=== PATIENT | male | born 1960 | race Caucasian/White ===

== ENCOUNTER 2016-06-09 19:25 | Emergency (ER) | payer BC ==
[~2016-06-09] VITALS: Ht 188 cm; Wt 132.8 kg
[~2016-06-09 19:25] MED LIST: ASPI81TA28 PO; CALC500C3 PO; MULT-506 PO; OMEG10007 PO
[2016-06-09 19:27] VITALS: TEMP 37; Ht 188 cm; Wt 132.8 kg
--- NOTE | 2016-06-09 19:55 | DIAGNOSTIC IMAGING REPORT ---
LEFT ANKLE MIN 3 VIEWS ROUTINE CLINICAL HISTORY: Left ankle pain status post trauma COMPARISON: None. DISCUSSION: There is moderate medial soft tissue swelling. No acute fractures are visualized. The ankle mortise appears intact on these nonstress views. There is a fragmented to recent surgical spur. IMPRESSION: Soft tissue swelling. No acute fractures identified. Electronically signed by: Juan Jose Kumar M.D. 06/09/2016 7:54 PM Dictated Date/Time: 06/09/2016 7:53 PM
[2016-06-09] MEDS ORDERED: ASCO100061 PO (20:32)
[2016-06-09] MEDS ORDERED: GLUCTAB7 PO (20:33)
[2016-06-09] MEDS ORDERED: GLUC1CAP35 PO (20:34)
[2016-06-09] MEDS ORDERED: PRLSR20 PO (20:35)
[2016-06-09] MEDS ORDERED: LSN/10125 PO (20:43)
--- NOTE | 2016-06-09 20:46 | EMERGENCY ROOM VISIT NOTE ---
History First contact with patient: 19:35 Chief Complaint: ANKLE PAIN Stated Complaint: SWOLLEN LEFT ANKLE History of Present Illness The patient is a 55 year old male who presents to the Emergency Room with complaints of swelling and bruising over the inner aspect of his left ankle. The patient reports that he is active in [employer]. He does not recall any trauma to the area. He denies any significant pain with ambulation. He was concerned because of the swelling and bruising in a class tonight. The patient reports that he has recently been following with Dr. Yeager at [facility] for numbness over the lateral aspect of his left foot. The patient currently rates his discomfort a 1 out of 10. He denies any pain extending into the knee or thigh. Review of Systems 10 system review was performed and was negative except for pertinent positives and negatives as indicated in history of present illness Past Medical/Surgical History Medical Problems: (1) Bilateral Inguinal Hernia, W/O Obst Or Gangrene, Recurrent (2) Peritoneal Adhesions (Postprocedural) (Postinfection) (3) Tear Med Menisc Knee-Cur (4) Umbilical Hernia Without Obstruction Or Gangrene Family History Unremarkable Social History Smoking Status: Never Smoker Alcohol Use: occasionally Marital Status: Housing Status: lives with family Occupation Status: employed Current/Historical Medications Scheduled Ascorbic Acid (Ascorbic Acid), 1,000 MG PO DAILY Aspirin (Aspirin Ec), 81 MG PO QAM Calcium Carbonate (Tums), 2 TAB PO PRN Fish Oil (Celina-3), 1,000 MG PO QAM Dvjwaeaxiec-Amwzcuddefi-Jya C- (Glucosamine Chondroitin), 4 CAP PO DAILY Multivitamin (Multivitamin), 1 TAB PO QAM Omeprazole (Prilosec), 20 MG PO DAILY Allergies Coded Allergies: No Known Allergies (Unverified , 06/09/16) Physical Exam Vital Signs Date Time Temp Pulse Resp B/P Pulse Ox O2 Delivery O2 Flow Rate FiO2 06/09/16 19:27 37.0 97 20 131/76 95 Room Air Physical Exam CONSTITUTIONAL: Healthy and well nourished. Alert and oriented X 3 with positive affect. HEENT: Normocephalic, atraumatic. Pupils equal, round and reactive. NECK: Full active range of motion without discomfort. MUSCULOSKELETAL: Examination shows edema and ecchymosis over the anterior medial aspect of the left ankle/distal leg. It is tender to palpation. There does not appear to be any tenderness to palpation of the ankle ligaments. Negative anterior draw. No focal tenderness to the Achilles tendon, calcaneus or dorsal midfoot. No tenderness to palpation through the tibia or fibula. Pedal pulses are intact. INTEGUMENTARY: No rash or other significant dermatologic conditions noted. NEUROLOGIC: No focal neurologic deficits noted. Medical Decision & Procedures ER Provider Diagnostic Interpretation: My interpretation of left ankle x-rays does not show any acute fractures. Radiologist report is as follows: LEFT ANKLE MIN 3 VIEWS ROUTINE CLINICAL HISTORY: Left ankle pain status post trauma COMPARISON: None. DISCUSSION: There is moderate medial soft tissue swelling. No acute fractures are visualized. The ankle mortise appears intact on these nonstress views. There is a fragmented to recent surgical spur. IMPRESSION: Soft tissue swelling. No acute fractures identified. ED Course Patient history and physical exam were performed. Nurse's notes were reviewed. X-rays of the left ankle were normal. The patient was encouraged to intermittently apply ice to areas of swelling and bruising. Ibuprofen or Tylenol as needed for pain. He was encouraged to follow-up with Dr. Yeager if symptoms persist or worsen. The patient was happy with plan of care, voiced understanding of all discharge instructions, and denied any pain at the time of discharge. Medical Decision Impression Primary Impression: Traumatic ecchymosis of left ankle Departure Information Dispostion Home / Self-Care Referrals Maylin Yeager MD Forms HOME CARE DOCUMENTATION FORM, IMPORTANT VISIT INFORMATION Patient Instructions My [facility] [employer] Additional Instructions Intermittently apply ice to ankle/areas of bruising. Ibuprofen or Tylenol as needed for any developing pain. Suggest follow-up with Dr. Yeager for any persistent bruising or worsening pain. Problem Qualifiers Primary Impression: Traumatic ecchymosis of left ankle Encounter type: initial encounter Qualified Codes: S90.02XA - Contusion of left ankle, initial encounter
[2016-06-09 20:56] VITALS: BP 152/85; PULSE 81; O2SAT 96
== END 2016-06-09 20:59 | disposition home or self-care (01) ==
LOC: C.EDB 19:28 → C.EDD 20:59
DX: S90.02XA Contusion of left ankle, initial encounter (principal); X58.XXXA Exposure to other specified factors, initial encounter

== ENCOUNTER 2021-07-25 10:25 | Inpatient (IN) ==
--- NOTE | 2021-07-08 13:42 | PAT Medication Instructions ---
Medication Instructions Date of Service July 08, 2021 Home Medications ascorbate calcium (vitamin C) 500 mg tablet 500 mg PO QAM hydrochlorothiazide 25 mg tablet 25 mg PO QAM losartan 50 mg tablet 100 mg PO QAM multivitamin 1 tab PO BID omeprazole 20 mg capsule,delayed release 20 mg PO QAM Relief Factor Otc 1 tab PO BID gabapentin 300 mg capsule 300 mg PO BID rosuvastatin 5 mg tablet 5 mg PO HS STOP taking 2 weeks before surgery (or as soon as possible) Relief Factor Otc 1 tab PO BID DO NOT take the morning of surgery ascorbate calcium (vitamin C) 500 mg tablet 500 mg PO QAM hydrochlorothiazide 25 mg tablet 25 mg PO QAM losartan 50 mg tablet 100 mg PO QAM multivitamin 1 tab PO BID Take morning of surgery With a small sip of water, OTHERWISE NOTHING TO EAT OR DRINK AFTER MIDNIGHT: omeprazole 20 mg capsule,delayed release 20 mg PO QAM gabapentin 300 mg capsule 300 mg PO BID Take evening before surgery multivitamin 1 tab PO BID gabapentin 300 mg capsule 300 mg PO BID rosuvastatin 5 mg tablet 5 mg PO HS Other Notes If you have any questions please call us at [phone] or [phone] or [phone] or [phone]
--- NOTE | 2021-07-10 13:12 | Anesthesiology Consultation ---
Date of Service July 10, 2021 Assessment & Plan (1) Encounter for pre-operative examination: COVID screening: Per assessment on 07/10: Travel screen- Patient travels to [place] (has second home there) for most weekends (no large gatherings or high risk activity). Patient vaccinated + booster. No known COVID-19 positive contacts or current COVID-19 related symptoms. Surgeon arranging preop COVID testing. Awaiting results. Chart Review Chart Review: Acceptable Risk for Surgery and Patient seen in Pre Admission Testing Teaching & Discussion Pre-Anesthesia Teaching/Discussion Notes: Instructed NPO after midnight before surgery,except medications with 15 cc of water. Medication instructions provided according to the PAT guidelines. \ History Surgery Operation Date: 07/25/21 12:00 Proposed Procedures p L4-L5 Decompression Fusion Spinal Cord Monitoring - Chilango Mcelroy DO Height/Weight Height: 6 ft 2 in Weight: 156.4 kg Allergies Allergy/AdvReac Type Severity Reaction Status Date / Time No Known Allergies Allergy Verified 07/08/21 07:59 Medications Home Medications Medication Instructions Recorded Confirmed Last Taken ascorbate calcium (vitamin C) 500 500 mg PO QAM 07/26/20 07/08/21 Unknown mg tablet hydrochlorothiazide 25 mg tablet 25 mg PO QAM 07/26/20 07/08/21 Unknown losartan 50 mg tablet 100 mg PO QAM 07/26/20 07/08/21 Unknown multivitamin 1 tab PO BID 07/26/20 07/08/21 Unknown omeprazole 20 mg capsule,delayed 20 mg PO QAM 07/26/20 07/08/21 Unknown release Relief Factor Otc 1 tab PO BID 07/08/21 07/08/21 Unknown gabapentin 300 mg capsule 300 mg PO BID 07/08/21 07/08/21 Unknown rosuvastatin 5 mg tablet 5 mg PO HS 07/08/21 07/08/21 Unknown Past Medical History Medical History Chronic back pain + B/L LE radiculopathy GERD (gastroesophageal reflux disease) Hyperlipidemia Hypertension Morbid obesity Sleep apnea CPAP (compliant until recall- just recently restarted) Temporomandibular joint disorder + clicking, no locking Exercise / Class Metabolic Activity III < 4 Walking/Shop/Light housework (one FS (no CP, + mild SOB)) Past Family History Family History Other No known health problems Past Surgical History Surgical History History of arthroscopy LEFT X 3 History of colonoscopy History of herniorrhaphy X 3 History of tonsillectomy Hx of shoulder surgery LEFT Past Anesthesia History No Hx of Anesthesia Complications and No Family Hx of Anesthesia Complications History of PONV No Hx of PONV and No Hx of Motion Sickness Social History Smoking Status: Never smoker Do You Dip or Chew Tobacco: No Hx Alcohol Use: Yes Alcohol type: beer alcohol intake frequency: a few times a week Hx Substance Use: No Review of Systems Patient denies chest pain, dyspnea on exertion, fever, chills, cough, wheezing, palpitations. Physical Exam Vital Signs VITALS BP 124/77 P 87 TEMP 98.4 SP02 94%RA RESP 18 PHYSICAL Full cervical extension range of motion. Full TMJ range of motion. TMD 3 finger breaths (difficult to palpate) Mallampati Score 3 Dentition: missing molar, + several caps Lungs: clear throughout to auscultation Cardiac: regular rate and rhythm, no murmurs noted Spine: normal Carotid arteries: negative bruit Extremities: no edema Short, thick neck Lab Results Anesthesia Preop Results Results Anesthesia Widget: WBC 6.81 K/uL (4.8-10.8) 07/10/21 Hgb 12.7 g/dL (14.0-18.0) L 07/10/21 Hct 38.3 % (42-52) L 07/10/21 Plt 246 K/uL (130-400) 07/10/21 Na 140 mmol/L (136-145) 07/10/21 K 3.5 mmol/L (3.5-5.1) 07/10/21 Cl 105 mmol/L (98-107) 07/10/21 CO2 30 mmol/L (21-32) 07/10/21 BUN 13 mg/dl (6-23) 07/10/21 Creat 1.07 mg/dl (0.6-1.4) 07/10/21 Glucose Level 130 mg/dl (70-99(Fasting)) H 07/10/21 PT 10.7 Seconds (9.0-12.0) 07/10/21 PTT 27.0 Seconds (21.0-31.0) 07/10/21 INR 1.0 (0.9-1.1) 07/10/21 Urine Color Dark Yellow 07/10/21 Urine Appearance Clear (Clear) 07/10/21 Urine pH 7.0 (4.5-7.5) 07/10/21 Urine Specific Stuart 1.015 (1.000-1.030) 07/10/21 Urine Protein Negative (Negative) 07/10/21 Urine Glucose (UA) Negative (Negative) 07/10/21 Urine Ketones Negative (Negative) 07/10/21 Urine Blood Negative (Negative) 07/10/21 Urine Nitrite Negative (Negative) 07/10/21 Urine Bilirubin Negative (Negative) 07/10/21 Urine Urobilinogen Negative (Negative) 07/10/21 Urine Leukocyte Esterase Trace (Negative) H 07/10/21 Urine WBC (Auto) 1-5 /hpf (0-5) 07/10/21 Urine RBC (Auto) 0-4 /hpf (0-4) 07/10/21 Urine Hyaline Casts (Auto) 1-5 /lpf (0-5) 07/10/21 Urine Epithelial Cells (Auto) 0-5 /lpf (0-5) 07/10/21 Urine Bacteria (Auto) Negative (Negative) 07/10/21 Blood Type O Negative 07/10/21 Antibody Screen NEGATIVE 07/10/21 Testing Electrocardiogram Date: 07/10/21 NSR at 72bpm. unconfirmed report. Chest X-Ray Date: 07/10/21 FINDINGS: The cardiac silhouette is enlarged. There is no pneumothorax, pleural effusion, airspace consolidation or overt pulmonary edema. Mild chronic int erstitial coarsening of the lung bases. Degenerative changes of the shoulders and spine. IMPRESSION: No acute process.
[~2021-07-25 10:25] MED LIST changes: +ACETAMINOPHEN 500 MG TAB PO SCH; -ASPI81TA28 PO; -CALC500C3 PO; +CeleBREX 200 MG CAP PO SCH; +GABAPENTIN 600 MG DOSE PO SCH; +LIDOCAINE 2% 2 ML VIAL/AMP(20MG/ML) INFIL ONE; +LR 15ML/HR IV SCH; +MIDAZOLAM HCL 1 MG/ML 2ML VIAL ONE; -MULT-506 PO; -OMEG10007 PO; +PROPOFOL IV EMULSION 10 MG/ML 20 ML VIAL IV ONE; +ROCURONIUM BROMIDE 10 MG/ML 5 ML VIAL IV ONE; +fentaNYL citrate 100 MCG/2 ML VIAL ONE
[2021-07-25] MEDS ORDERED: fentaNYL citrate 100 MCG/2 ML VIAL IV PRN (11:43)
[2021-07-25] MEDS ORDERED: ONDANSETRON INJ 2 MG/ML 2 ML VIAL IV PRN ×2 (11:43→16:32)
[2021-07-25] MEDS ORDERED: ATROPINE SULFATE 0.1 MG/ML 10ML SYR IV PRN (11:43)
[2021-07-25] MEDS ORDERED: ePHEDrine sulfate 50 MG/ML AMP IV PRN (11:43)
--- NOTE | 2021-07-25 11:51 | History & Physical Bridge Note ---
Date of Service July 25, 2021 History & Physical Bridge Note I have examined the patient, reviewed the History & Physical and in the interval since the performance of the History & Physical I have noted the following changes of clinical significance: no changes noted
--- NOTE | 2021-07-25 11:52 | History & Physical Report ---
Date of Service July 25, 2021 Assessment & Plan (1) Neurogenic claudication due to lumbar spinal stenosis: Plan: Lumbar decompression fusion L4-L5 History of Present Illness Chief Complaint: Back and leg pain Primary Care Provider: Inocencia Elliott Allergies Allergy/AdvReac Type Severity Reaction Status Date / Time No Known Allergies Allergy Verified 07/25/21 11:08 Home Medications Medication Instructions Recorded Confirmed Type ascorbate calcium (vitamin C) 500 500 mg PO QAM 07/26/20 07/25/21 History mg tablet hydrochlorothiazide 25 mg tablet 25 mg PO QAM 07/26/20 07/25/21 History losartan 50 mg tablet 100 mg PO QAM 07/26/20 07/25/21 History multivitamin 1 tab PO BID 07/26/20 07/25/21 History omeprazole 20 mg capsule,delayed 20 mg PO QAM 07/26/20 07/25/21 History release Relief Factor Otc 1 tab PO BID 07/08/21 07/25/21 History gabapentin 300 mg capsule 300 mg PO BID 07/08/21 07/25/21 History rosuvastatin 5 mg tablet 5 mg PO HS 07/08/21 07/25/21 History Past Med/Surg History Medical History Chronic back pain + B/L LE radiculopathy GERD (gastroesophageal reflux disease) Hyperlipidemia Hypertension Morbid obesity Sleep apnea CPAP (compliant until recall- just recently restarted) Temporomandibular joint disorder + clicking, no locking Surgical History History of arthroscopy LEFT X 3 History of colonoscopy History of herniorrhaphy X 3 History of tonsillectomy Hx of shoulder surgery LEFT Family History Other No known health problems Social History (Updated 07/08/21 @ 08:19 by Bonnie Rao RN) Smoking Status: Never smoker Second Hand Exposure: No; Do You Dip or Chew Tobacco: No; Hx Alcohol Use: Yes Alcohol type: beer Hx Substance Use: No Preferred Language: Lithuanian Communication Ability: Effective Classifier Tender Required: No Beliefs That Will Affect Care: None Current Living Situation: Spouse current occupational status: employed current occupation: [employer] Other Information That Helps Us Care for You: No Feels Safe at Home: Yes Safety Concerns: Feels Safe At This Time Assistive Devices: Glasses Physical Exam Physical Exam: Patient is alert and oriented Heart regular rhythm Lungs clear Results & Data ([facility]) Vital Signs (Past 12 Hours) Vital Signs Temp Pulse Resp BP Pulse Ox 07/25/21 11:11 36.9 C 89 20 140/89 96
[2021-07-25] MEDS ORDERED: ceFAZolin 330 MG/ML 1 GM VIAL ONE (12:18)
[2021-07-25] MEDS ORDERED: EPINEPHrine INJ 1 MG/ML AMP ONE (12:18)
[2021-07-25] MEDS ORDERED: BUPIVACAINE 0.5 % 5 MG/1 ML MPF 30ML VIAL ONE (12:18)
[2021-07-25] MEDS ORDERED: FLOSEAL HEMOSTATIC MATRIX 10ML TOP ONE (13:11)
[2021-07-25] MEDS ORDERED: DEXAMETHASONE SOD INJ 4 MG/ML VIAL ONE (13:20)
[2021-07-25] MEDS ORDERED: NEOSTIGMINE METHYLSULFATE 1 MG/ML 10ML VIAL ONE (13:20)
[2021-07-25] MEDS ORDERED: ONDANSETRON INJ 2 MG/ML 2 ML VIAL ONE (13:20)
[2021-07-25] MEDS ORDERED: GLYCOPYRROLATE 0.2 MG/ML VIAL ONE (13:20)
[2021-07-25] MEDS ORDERED: ROCURONIUM BROMIDE 10 MG/ML 5 ML VIAL IV ONE (13:20)
--- NOTE | 2021-07-25 14:46 | Operative Report ---
Post Operative Report Pre & Post Diagnosis Operation Date: 07/25/21 11:55 Pre-Op Diagnosis: Neurogenic Claudication due to Lumbar Spinal Stenosis L4 - L5 Post-Op Diagnosis: Neurogenic Claudication due to Lumbar Spinal Stenosis L4 - L5 I identified the patient and participated in the time-out.: Yes Procedure Operation Date: 07/25/21 11:55 Actual Procedures #1 lumbar decompression with bilateral medial facetectomies and foraminotomies L3-L4 L4-5 #2 posterior spinal fusion L4-5 #3 placed posterior instrumentation L4-5 per #4 interbody fusion L4-5 per #5 placement of Spira cage 15 x 26 mm at L4-5 #6 placement locally harvested morselized autograft in the posterior gutters. #7 placement of I factor combined with V toss in the interbody space and posterior lateral gutters. Surgeon Chilango Mcelroy, DO Branch Operations Coordinator Koby Sullivan Estimated Blood Loss 200 Findings See Below The patient is 6 foot 2 inches tall weighing over 155 kg with a BMI of 44. Patient's body mass did contribute to significant technical difficulty requiring retractors longus instruments in order to perform his procedure. This at least 50% increased operative time. Specimens None Indications This is a 60-year-old male who presents with above-mentioned diagnosis after failing course of nonoperative care is here for surgical invention. Description of Procedure Patient was met with identified informed consent obtained. Patient was then taken to the operative suite underwent a patient placed in a prone position the [facility] top Aayush frame. All bony prominences well-padded eyes inspected to ensure no external pressure placed upon the. This point lumbar spine was pr epped and draped in normal sterile fashion. Sharp dissection with the assistance of Bovie cautery was performed down to and exposing the lamina transverse processes of L4-L5 bilaterally. From caudal to cephalad fashion complete laminectomy of L4 partial laminectomy of L3 was performed including bilateral medial facetectomies and foraminotomies addressing severe spinal stenosis and removing facet cyst bilaterally. After complete decompression pedicle screws were placed in L4-L5 bilaterally with assistance of fluoroscopy and appropriate sized leonid placed. By the transverse foramen approach on the left complete discectomy of L for L5 was performed endplates curetted to subcortical bleeding bone and a 15 x 26 mm spiral cage with I factor tapped in position. The rods then compressed locked in final position bilaterally. The transverse processes of L4-L5 burred to subcortical bleeding bone. I factor combined with V toss and locally harvested morselized autograft placed in the posterior gutters. 15 round JEN drain inserted. The incision was then closed with 1 Vicryl the fascia 2-0 Vicryl subcutaneously and 4 Monocryl for final skin closure. Steri-Strip sterile dressings placed. Patient waken taken PACU stable condition. Please note spinal cord monitoring was utilized at the procedure no changes noted. Lastly Koby Sullivan was present at the entire surgery and while the patient positioning complex portions of the surgery and final skin closure. I attest to the content of the Intraoperative Record and any orders documented therein. Any exceptions are noted below.
[2021-07-25] MEDS ORDERED: HYDROmorphone INJ 2 MG/ML SYR/VIAL ONE (14:52)
--- NOTE | 2021-07-25 14:52 | Fluoroscopy Report ---
FL lumbar spine 2-3V HISTORY: 60 years-old Male L4-L5 DECOMPRESSION AND FUSION WITH INTERBODY COMPARISON: MRI lumbar spine 03/27/2021 TECHNIQUE: 2 spot fluoroscopic images of the lumbar spine were obtained utilizing 24.1 seconds fluoro scopy time FINDINGS: Laminectomy with discectomy, posterior interbody leonid and screw fusion at L4-L5. The hardware appears intact. Satisfactory alignment. No unexpected opaque foreign body. IMPRESSION: Fluoroscopic assistance as above. ACT 112: Negative or not required by law. The above report was generated using voice recognition software. It may contain grammatical, syntax o r spelling errors. Electronically signed by: Gustavo Maldonado M.D. 07/25/2021 2:50 PM
--- NOTE | 2021-07-25 15:57 | Anesthesiology Progress Note ---
Date of Service July 25, 2021 Anesthesia Post Procedure Vital Signs Vital Signs: Temp Pulse Pulse Resp BP Pulse Ox 07/25/21 15:50 85 14 155/83 H 97 07/25/21 15:40 85 20 148/93 H 92 07/25/21 15:30 82 16 150/88 H 93 07/25/21 15:20 75 14 150/90 H 98 07/25/21 15:11 97.3 F L 78 13 118/65 97 07/25/21 11:11 98.4 F 89 20 140/89 96 Transfer of Care Handoff Completed per policy Notes Mental Status: alert / awake / arousable and participated in evaluation Patient Amnestic to Procedure: Yes Nausea / Vomiting: adequately controlled Pain: adequately controlled Airway Patency, RR, SpO2: stable & adequate BP & HR: stable & adequate Hydration State: stable & adequate Anesthetic Complications: no major complications apparent and Pt Satisfied with anesthetic care
[2021-07-25] MEDS ORDERED: ONDANSETRON 4 MG OD TAB PO PRN (16:32)
[2021-07-25] MEDS ORDERED: NALOXONE HCL 0.4 MG/1 ML VIAL/CARP IV PRN (16:32)
[2021-07-25] MEDS ORDERED: diphenhydrAMINE Capsule 25 MG CAP PO PRN (16:32)
[2021-07-25] MEDS ORDERED: ALUMINUM/MAGNESIUM SUSP 30 ML UDC PO PRN (16:32)
[2021-07-25] MEDS ORDERED: ACETAMINOPHEN 1,000 MG/100 ML VIAL IV PRN (16:32)
[2021-07-25] MEDS ORDERED: DO NOT ADMINISTER FLU VACCINE PRN (16:32)
[2021-07-25] MEDS ORDERED: SOD PHOSPHATE/SOD BIPHOSPHATE ENEMA 132 ML BTL PR PRN (16:32)
[2021-07-25] MEDS ORDERED: HYDROmorphone INJ 0.5 MG/0.5 ML SYR IV PRN (16:32)
[2021-07-25] MEDS ORDERED: MAGNESIUM HYDROXIDE SUSP 30 ML UDC PO PRN (16:32)
[2021-07-25] MEDS ORDERED: bisacodyL 10 MG SUPP PR PRN (16:32)
[2021-07-25] MEDS ORDERED: METOCLOPRAMIDE HCL INJ 5 MG/ML 2 ML VIAL IV PRN (16:32)
[2021-07-25] MEDS ORDERED: LORazepam 0.5 MG TAB PO PRN (16:32)
[2021-07-25] MEDS ORDERED: oxyCODONE HCL IR 5 MG TAB (IMMEDIATE RELEASE) PO PRN (16:32)
[2021-07-25] MEDS ORDERED: DO NOT ADMINISTER PNEUMOCOCCAL VACCINE PRN (16:32)
[2021-07-25] MEDS ORDERED: PROMETHAZINE HCL 12.5 MG in SODIUM CHLORIDE 0.9% 50 ML IV PRN (16:32)
[2021-07-25] MEDS ORDERED: hydrOXYzine HCl 25 MG TAB PO PRN (16:32)
[2021-07-25] MEDS ORDERED: HYDROmorphone INJ 1 MG/ML SYRINGE IV PRN (16:32)
[2021-07-25] MEDS ORDERED: LORazepam 2 MG/1 ML VIAL IV PRN (16:32)
[2021-07-25] MEDS ORDERED: FAMOTIDINE 20 MG TAB PO PRN (16:32)
--- NOTE | 2021-07-25 16:56 | Hospitalist Consultation ---
Date of Consultation July 25, 2021 Assessment & Plan (1) Neurogenic claudication due to lumbar spinal stenosis: Spinal stenosis with claudication Status post lumbar decompression and fusion with cage placement 07/25/2021 Activity requirements and pain control per primary surgical teamcontinue incentive spirometry, flutter valve Patient may not need his gabapentin pending results with spinal surgery, but okay to continue for now (2) Hypertension: Hypertension Resume home losartan 50 mg every morning (last took 07/24) Continue hydrochlorothiazide 25 mg p.o. every morning. May take 12.5mg PO dose tonight if hypertensive postop - No sx of hypertension at bedside eval (3) Sleep apnea: Sleep apnea Last seen by pulmonary 07/26/2020 on CPAP, has home device with him and will continue to use tonight Was trialed on fluticasoneVilanterol (Breo) 07/26/2020 for mild airflow obstruction on spirometry. No benefit and this was stopped. (4) Hyperlipidemia: - Continue rosuvastatin 5mg qHS (5) GERD (gastroesophageal reflux disease): GERD Continue daily omeprazole, converted to Protonix May use Pepcid 20 mg twice daily as needed would recommend substituting this as needed for outpatient omeprazole to prevent long-term side effects of PPIs on discharge. Discussed with patient at bedside. ED prophylaxis: SCDs, and per primary History of Present Illness Attending Physician: Chilango Mcelroy, History of Present Illness Edward is a 60-year-old male with a past medical history of hypertension and sleep apnea who underwent lumbar decompression/fusion L4-L5 on 07/25/2021 for neurogenic claudication due to lumbar spinal stenosis. Medicine has been consulted for routine medical management. Patient has a history of sleep apnea on home CPAP, compliant until machine was recently recalled. Does have a history of hypertension on losartan 50 mg daily at home which was held day of procedure and hydrochlorothiazide 25 mg p.o. every morning Hyperlipidemia managed with rosuvastatin 5 mg p.o. nightly. Has a history of GERD on home omeprazole. Lumbar decompression and spinal fusion 07/25 was uncomplicated with an estimated 200 cc of blood loss. No complications of anesthesia during procedure. Patient seen postoperatively. Blood pressure 150/90, pulse with normal rate, afebrile, breathing well on room air. Stopped breo. used as a test for SoB with exercise, no benefit. No lightheadedness, dizziness, No chest pain, chest pressure, palpitations Back is 'not bad' can feel slightly uncomfortable but 'not terrible and very to lerable.' no numbness/tingling or extremity weakness. No headache. Nurses recently rolled to check dressing which was slightly painful. 1 JEN drain sanginous-serosanguinous output Medical History: Reviewed Medications: Reviewed Surgical History: Reviewed Allergies: Reviewed Social History: No tobacco product use, rare social alcohol use. No recreational drug use. Code Status: Full Code Allergies Allergy/AdvReac Type Severity Reaction Status Date / Time No Known Allergies Allergy Verified 07/25/21 11:08 Home Medications Medication Instructions Recorded Confirmed Type ascorbate calcium (vitamin C) 500 500 mg PO QAM 07/26/20 07/25/21 History mg tablet hydrochlorothiazide 25 mg tablet 25 mg PO QAM 07/26/20 07/25/21 History losartan 50 mg tablet 100 mg PO QAM 07/26/20 07/25/21 History multivitamin 1 tab PO BID 07/26/20 07/25/21 History omeprazole 20 mg capsule,delayed 20 mg PO QAM 07/26/20 07/25/21 History release Relief Factor Otc 1 tab PO BID 07/08/21 07/25/21 History gabapentin 300 mg capsule 300 mg PO BID 07/08/21 07/25/21 History rosuvastatin 5 mg tablet 5 mg PO HS 07/08/21 07/25/21 History Patient History Medical History Chronic back pain + B/L LE radiculopathy GERD (gastroesophageal reflux disease) Hyperlipidemia Hypertension Morbid obesity Sleep apnea CPAP (compliant until recall- just recently restarted) Temporomandibular joint disorder + clicking, no locking Surgical History History of arthroscopy LEFT X 3 History of colonoscopy History of herniorrhaphy X 3 History of tonsillectomy Hx of shoulder surgery LEFT Family History Other No known health problems Social History Smoking Status: Never smoker Second Hand Exposure: No; Do You Dip or Chew Tobacco: No; Hx Alcohol Use: Yes Alcohol type: beer Hx Substance Use: No Preferred Language: Romansh Communication Ability: Effective 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 NAD. Cooperative. HEENT: Atraumatic, normocephalic. Vision/hearing grossly intact. Pulm: CTAB A&P. -wheezes, -rales, -rhonchi. Symmetrical chest rise. No increased work of breathing. No respiratory distress. Cardiac: RRR, -mrg. Radial pulses intact and symmetrical. Abdominal: Nontender, nondistended, soft. BS present. Skin/Back: Warm, dry. JEN drain with serous to serosanginous fluid ~30ccs. Post surgical dressing intact. Results & Data Results & Data ([facility]) Vital Signs (Past 12 Hours) Vital Signs Temp Pulse Pulse Resp BP Pulse Ox 07/25/21 16:35 36.5 C 16 150/90 H 95 07/25/21 16:10 77 20 147/89 H 98 07/25/21 16:00 36.3 C L 78 16 158/90 H 97 07/25/21 15:50 85 14 155/83 H 97 07/25/21 15:40 85 20 148/93 H 92 07/25/21 15:30 82 16 150/88 H 93 07/25/21 15:20 75 14 150/90 H 98 07/25/21 15:11 36.3 C L 78 13 118/65 97 07/25/21 11:11 36.9 C 89 20 140/89 96 PG Care Time/CCT Total # of Minutes Spent Total Time Spent with Patient: Total time spent is greater than 50% in coordination of care (as documented) at patient's floor/unit and/or counseling patient: Coding Level of Care Code 27442 Inpt Consult Level 3 Diagnoses Neurogenic claudication due to lumbar spinal stenosis M48.062 Hypertension I10 Sleep apnea G47.30 Hyperlipidemia E78.5 GERD (gastroesophageal reflux disease) K21.9
[2021-07-25] MEDS: LACTATED RINGER'S 1,000 ML IV SCH ×2 (17:32→21:04)
[2021-07-25] MEDS: ACETAMINOPHEN 500 MG TAB PO PRN (17:34)
[2021-07-25] MEDS: ceFAZolin 2000MG 2,000 MG/15 ML SYR IV SCH (20:31)
[2021-07-25] MEDS: GABAPENTIN 300 MG CAP PO SCH (20:32)
[2021-07-25] MEDS: DOCUSATE SODIUM/SENNA 50/8.6MG TAB PO SCH (20:32)
[2021-07-25] MEDS: ROSUVASTATIN CALCIUM 5 MG TAB PO SCH (20:32)
[2021-07-26] MEDS: LACTATED RINGER'S 1,000 ML IV SCH (02:51)
[2021-07-26] MEDS: ceFAZolin 2000MG 2,000 MG/15 ML SYR IV SCH (04:47)
[2021-07-26] MEDS: POLYETHYLENE (MIRALAX) 17 GM PACK PO SCH ×4 (05:41→23:41)
[2021-07-26 06:57] LABS: Basophils # (auto) 0.01 K/uL (0-0.2); Basophils % (auto) 0.1 %; Hemoglobin 11.3 g/dL (14.0-18.0); Immature Granulocytes # (auto) 0.06 K/uL (0.00-0.02); Immature Granulocytes % (auto) 0.4 %; Lymphocytes # (auto) 1.05 K/uL (1.2-3.4); Lymphocytes % (auto) 7.1 %; Mean Corpuscular Hemoglobin 26.7 pg (25-34); Mean Corpuscular Hgb Conc 33.2 g/dL (32-36); Mean Corpuscular Volume 80.2 fL (80-100); Mean Platelet Volume 9.3 fL (7.4-10.4); Monocytes # (auto) 1.01 K/uL (0.11-0.59); Monocytes % (auto) 6.8 %; Neutrophils # (auto) 12.76 K/uL (1.4-6.5); Neutrophils % (auto) 85.6 %; Platelet Count 262 K/uL (130-400); RDW Coefficient of Variation 16.5 % (11.5-14.5); Red Blood Count 4.24 M/uL (4.7-6.1); White Blood Count 14.89 K/uL (4.8-10.8)
[2021-07-26 07:15] LABS: BUN Creatinine Ratio 17.7 (10-20); Calcium 8.5 mg/dl (8.5-10.1); Creatinine Clr Calc Pharmacy 110.9 ml/min; Est GFR (Non-African American) 70.8 ml/min; Potassium 3.8 mmol/L (3.5-5.1)
[2021-07-26] MEDS: PANTOprazole 40 MG TAB PO SCH (08:29)
[2021-07-26] MEDS: GABAPENTIN 300 MG CAP PO SCH ×2 (08:29→20:02)
[2021-07-26] MEDS: hydroCHLOROthiazide 25 MG TAB PO SCH (08:29)
[2021-07-26] MEDS: LOSARTAN POTASSIUM 50 MG TAB PO SCH (08:29)
[2021-07-26] MEDS: MULTIVITAMIN TAB PO SCH (08:29)
[2021-07-26] MEDS: ASCORBIC ACID 500 MG TAB PO SCH (08:29)
[2021-07-26] MEDS: dexAMETHasone 6 MG in SYRINGE 0 ML IV SCH (08:30)
--- NOTE | 2021-07-26 11:17 | Orthopedic Progress Note ---
Date of Service July 26, 2021 Assessment & Plan (1) Neurogenic claudication due to lumbar spinal stenosis: Plan: This time we will continue physical therapy monitor his JEN output anticipate discharge home next few days. Admission and Anticipated Discharge Date Admission Date: July 25, 2021 Subjective Back pain controlled leg pain markedly improved Physical Exam Physical Exam: Patient is in his chair at the bedside. He is very comfortable. Is good strength testing. Results & Data ([facility]) Vital Signs (Past 12 Hours) Vital Signs Temp Pulse Resp BP Pulse Ox 07/26/21 07:56 36.7 C 89 16 133/77 95 07/26/21 02:52 37 C 92 H 18 130/79 93
--- NOTE | 2021-07-26 11:34 | Hospitalist Progress Note ---
Date of Service July 26, 2021 Assessment & Plan (1) Neurogenic claudication due to lumbar spinal stenosis: Plan: Spinal stenosis with claudication Status post lumbar decompression and fusion with cage placement 07/25/2021 Activity requirements and pain control per primary surgical teamcontinue incentive spirometry, flutter valve Patient may not need his gabapentin pending results with spinal surgery, but okay to continue for now (2) Hypertension: Plan: Hypertension Resume home losartan 50 mg every morning (last took 07/24) Continue hydrochlorothiazide 25 mg p.o. every morning. May take 12.5mg PO dose tonight if hypertensive postop BP well controlled this AM (3) Sleep apnea: Plan: Sleep apnea Last seen by pulmonary 07/26/2020 on CPAP, has home device with him and will continue to use tonight Was trialed on fluticasoneVilanterol (Breo) 07/26/2020 for mild airflow obstruction on spirometry. No benefit and this was stopped. (4) Hyperlipidemia: Plan: Continue rosuvastatin 5mg qHS (5) GERD (gastroesophageal reflux disease): Plan: GERD Continue daily omeprazole, converted to Protonix May use Pepcid 20 mg twice daily as needed would recommend substituting this as needed for outpatient omeprazole to prevent long-term side effects of PPIs on discharge. Discussed with patient at bedside. Plan: No further recommendations. Pt is doing well post operatively. Medicine will sign off at this time but continue to do daily chart checks. Plan to be d/w Dr. Barnhart. Admission and Anticipated Discharge Date Admission Date: July 25, 2021 Subjective Patient seen on rounds this morning. He is POD#1 s/p lumbar decompression and fusion by Dr. Mcelroy. He is doing well, verbalizes some back soreness. Denies numbness/tingling, pain radiating down one or both legs. Denies cp or dyspnea. Passing flatus. Voiding w/o issue. Review of Systems Review of Systems: CONSTITUTIONAL: Denies weight loss/gain, fever and chills, fatigue, malaise, generalized weakness. HEENT: Denies changes in vision and hearing. RESPIRATORY: Denies SOB, cough, wheezing. CV: Denies palpitations, CP, lower extremity edema, orthopnea, PND. GI: Denies abdominal pain, nausea, vomiting and diarrhea. : Denies dysuria and urinary frequency, urgency, hesitancy. MUSCULOSKELETAL: Back soreness. SKIN: +back incision. Denies rash and pruritus. NEUROLOGICAL: Denies headache, syncope, focal weakness, numbness, tingling. PSYCHIATRIC: Denies recent changes in mood. Denies anxiety and depression. Physical Exam Physical Exam: GENERAL: 60 yo Well-developed, well-nourished WM. NAD. LUNGS: Clear to auscultation bilaterally. No accessory muscle use. No W/R/R. CARDIOVASCULAR: Regular rate and rhythm. No M/G/R. No JVD. ABDOMEN: Soft, non-tender and non-distended. BS normal x 4 quad. EXTREMITIES: No edema. Non-tender. Peripheral pulses +2/4. NEUROLOGIC: A&O x3. No focal neurological deficits. PSYCHIATRIC: Cooperative. Appropriate mood and affect. SKIN: Warm, dry, intact. Back incision dressed, JEN drain visualized. Results & Data Results & Data ([facility]) Vital Signs (Past 12 Hours) Vital Signs Temp Pulse Resp BP Pulse Ox 07/26/21 07:56 36.7 C 89 16 133/77 95 07/26/21 02:52 37 C 92 H 18 130/79 93 Laboratory Results 07/26/21 06:30 07/26/21 06:30 PG Care Time/CCT Total # of Minutes Spent Total Time Spent with Patient: Total time spent is greater than 50% in coordination of care (as documented) at patient's floor/unit and/or counseling patient: Coding Level of Care Code 04546 Subseq Hosp Care Lvl 2 Diagnoses Neurogenic claudication due to lumbar spinal stenosis M48.062 Hypertension I10 Sleep apnea G47.30 Hyperlipidemia E78.5 GERD (gastroesophageal reflux disease) K21.9
[2021-07-26] MEDS: DOCUSATE SODIUM/SENNA 50/8.6MG TAB PO SCH (20:02)
[2021-07-26] MEDS: ROSUVASTATIN CALCIUM 5 MG TAB PO SCH (20:02)
[2021-07-27] MEDS: POLYETHYLENE (MIRALAX) 17 GM PACK PO SCH ×4 (06:10→23:58)
[2021-07-27] MEDS: LOSARTAN POTASSIUM 50 MG TAB PO SCH (08:18)
[2021-07-27] MEDS: traMADol HCL 50 MG TABLET PO PRN ×2 (08:18→14:10)
[2021-07-27] MEDS: hydroCHLOROthiazide 25 MG TAB PO SCH (08:18)
[2021-07-27] MEDS: MULTIVITAMIN TAB PO SCH (08:18)
[2021-07-27] MEDS: ASCORBIC ACID 500 MG TAB PO SCH (08:18)
[2021-07-27] MEDS: PANTOprazole 40 MG TAB PO SCH (08:18)
[2021-07-27] MEDS: GABAPENTIN 300 MG CAP PO SCH ×2 (08:18→21:45)
[2021-07-27] MEDS: dexAMETHasone 6 MG in SYRINGE 0 ML IV SCH (08:19)
--- NOTE | 2021-07-27 11:07 | Orthopedic Progress Note ---
Date of Service July 27, 2021 Assessment & Plan (1) Neurogenic claudication due to lumbar spinal stenosis: Plan: At this time continue physical therapy monitor his JEN output advance his bowel regimen hopefully discharge home tomorrow. Admission and Anticipated Discharge Date Admission Date: July 25, 2021 Subjective Patient's back pain is controlled leg symptoms markedly improved. He is tolerating physical therapy well. Physical Exam Physical Exam: Patient is in the chair at the bedside. Is good strength testing. Appears comfortable. Results & Data ([facility]) Vital Signs (Past 12 Hours) Vital Signs Temp Pulse Resp BP Pulse Ox 07/27/21 07:17 36.8 C 85 16 137/72 97
[2021-07-27] MEDS: DOCUSATE SODIUM/SENNA 50/8.6MG TAB PO SCH (21:44)
[2021-07-27] MEDS: ROSUVASTATIN CALCIUM 5 MG TAB PO SCH (21:45)
[2021-07-28] MEDS: POLYETHYLENE (MIRALAX) 17 GM PACK PO SCH (06:09)
[2021-07-28] MEDS: ASCORBIC ACID 500 MG TAB PO SCH (08:27)
[2021-07-28] MEDS: GABAPENTIN 300 MG CAP PO SCH (08:27)
[2021-07-28] MEDS: LOSARTAN POTASSIUM 50 MG TAB PO SCH (08:27)
[2021-07-28] MEDS: dexAMETHasone 6 MG in SYRINGE 0 ML IV SCH (08:27)
[2021-07-28] MEDS: MULTIVITAMIN TAB PO SCH (08:28)
[2021-07-28] MEDS: PANTOprazole 40 MG TAB PO SCH (08:28)
[2021-07-28] MEDS: hydroCHLOROthiazide 25 MG TAB PO SCH (08:28)
--- NOTE | 2021-07-28 09:52 | Discharge Summary ---
Date of Service July 28, 2021 Principal Diagnosis Lumbar spinal stenosis with radiculopathy Discharge Data Allergies Allergy/AdvReac Type Severity Reaction Status Date / Time No Known Allergies Allergy Verified 07/25/21 11:08 Consultations 07/25/21 16:32 Consult Hospitalist Routine Procedures Performed Operation Date: 07/25/21 11:55 Actual Procedures p L4-L5 Decompression and Fusion, Spinal Cord Monitoring - Chilango Mcelroy DO Ordered Studies 07/25/21 11:55 FL lumbar spine 2-3V Routine Hospital Course (1) Neurogenic claudication due to lumbar spinal stenosis: Patient with lumbar decompression fusion tolerated so was taken to orthopedic for postoperative. Postop day 1 is up and ambulating progressed to postop day #2 on postop day 3 pain was well controlled JEN drain decreased appropriately. Extra strength testing. Subsequent discharge home. Discharge orders instructions were on the chart for further review. Total Time Total Time Spent Total Time Spent (In Minutes): 20 minutes Discharge Plan Discharge Items Patient Disposition: Home - Self-Care Reason For Visit: Spinal Stenosis of Lumbar Region with Discharge Diagnosis: Lumbar spinal stenosis with neurogenic claudication Activity: Per Instructions section Non-emergency contact: Primary Care Provider Call non-emergency contact if: you have any medication questions Follow-up/Referrals: Inocencia Elliott [Primary Care Provider] - Diet: Regular Addtl Attending Provider Instructions: ACTIVITY RECOMMENDATIONS: SELF CARE INSTRUCTIONS AFTER THORACIC/LUMBAR FUSIONS 1. You may walk to your tolerance. It is good exercise for your legs and back. Expect some back and intermittent leg aches and pains. 2. You may perform "counter-top" level activities (make a sandwich, eli with a project, etc.). 3. No bending or lifting of more than 10 pounds or back twisting of any nature (roll like a log when turning in bed). 4. You may ride in a car for 20-30 minutes at a time. No driving until after your first visit with your doctor. 5. Frequent changes of position and restricting sitting to 30 minutes at a time will help limit the amount of back spasms and stiffness you may experience. 6. You may discontinue the use of ambulatory aids (cane, crutches, etc.) once your strength and confidence allow. 7. You may project engineer chemicals the shower and let water strike your incision when you arrive home at least once daily. Do not take a tub bath, sit in a hot tub or go into a swimming pool until after your first recheck in the office. SPECIAL CARE INSTRUCTIONS: VERY IMPORTANT TO READ AND REVIEW A. Your surgical incision has been closed with a cosmetic suture under the skin that will dissolve in about 6 weeks. In 14 days, you can use a pair of clean scissors and cut the suture that is left outside of the skin at the ends of your incision. 1. The small skin tapes can be removed 7 days after surgery if they have not fallen off by that point. 2. You may keep the wound open to air as much as possible to promote healing after post-op day number 5 unless told otherwise by your doctor. 3. If you think the wound looks like it is becoming infected (redness or worsening drainage) and/or you are experiencing fever, chill or worsening back pain and muscle spasms, contact the office so that we may evaluate you as soon as possible. B. Complications are uncommon, but please contact us if you have any signs or symptoms of: 1. wound infection (fever higher than 102.5 degrees F, redness, separation of wound, drainage, or increasing pain from the incision) 2. blood clots in legs (pain, swelling, redness and warmth in legs) 3. urinary tract infection (fever higher than 102.5 degrees F, burning upon urination or increased frequency of urination) 4. nerve problems (inability to walk on your toes or heels, numbness, loss of bowel or bladder control) 5. any other symptoms that concern you C. Please call the office at if you have any concerns or questions about your operation or recovery. D. No smoking! Smoking drastically decreases the chance of a solid fusion. E. Do not take any anti-inflammatory medications (Indocin, Advil, Motrin, Aspirin, Naprosyn, etc.) as these may inhibit the chance of a solid fusion. Tylenol is okay to take for pain. MANAGING PAIN AFTER SPINAL SURGERY 1. Narcotic medication is intended for short-term use and will be provided for surgical pain. Surgical pain usually lasts for a period of 4-6 weeks. Narcotic medication includes Percocet, Vicodin, Darvocet, Tylenol #3 or Lortab. 2. Longer-term pain is more appropriately treated with non-narcotic medication such as Tylenol ES. 3. Muscle spasm is not appropriately treated with narcotics. Muscle relaxers such as Soma, Flexeril or Skelaxin can be used along with Tylenol ES. 4. Remember that we all live with some "aches and pains". This is not unusual or uncommon after an injury or as we get older. a. Back pain is expected and may include muscle spasms for 4 to 6 weeks after surgery. The pain should gradually improve. If the pain worsens for no apparent reason, please contact the office. b. Intermittent leg pain may also be experienced and should not be concerned about unless it worsens for no apparent reason. If so, please contact the office. 5. We will provide appropriate medication within the normal guidelines of their prescribed use. We will also be very cautious and aware of potential abuse and extended duration of patients' medication needs. a. Pain medications are for your comfort and to assist with sleep and rest so that the tissue can heal. They are not provided in order to return to normal activity and should not be used through the day. To do so or worsening pain at night can result from ongoing tissue damage and develop ment of tolerance to the prescribed medicine. 6. Please allow 2-3 days to process refills. Prescriptions will not be mailed but must be picked up at the office. FOLLOW UP VISIT: Keep your scheduled follow-up appointment. Any questions, please call the office at . Pending Studies at Discharge: No Stand-Alone Forms: My [facility] [employer], Smoking Cessation Medications and DC Order Prescriptions: New tramadol 50 mg tablet 50 mg PO Q6H PRN (Reason: pain, moderate) Qty: 30 RF: 0 oxycodone 5 mg tablet 5 mg PO Q6H PRN (Reason: pain, severe) Qty: 30 RF: 0 Continued ascorbate calcium (vitamin C) 500 mg tablet 500 mg PO QAM RF: 0 hydrochlorothiazide 25 mg tablet 25 mg PO QAM RF: 0 losartan 50 mg tablet 100 mg PO QAM RF: 0 multivitamin Tablet 1 tab PO BID RF: 0 omeprazole 20 mg capsule,delayed release(DR/EC) 20 mg PO QAM RF: 0 gabapentin 300 mg Capsule 300 mg PO BID RF: 0 rosuvastatin 5 mg Tablet 5 mg PO HS RF: 0 Relief Factor Otc 1 tab PO BID RF: 0 Discharge Orders: Discharge Order (Routine); Ordered 07/28/21 Ordered By: Chilango Mcelroy Admission Data Admit Date/Time: 07/25/21 14:50 Attending Provider: Chilango Mcelroy Admit Provider: Chilango Mcelroy Primary Care Provider: Inocencia Elliott Other Providers: Jasson Barnhart
[2021-07-28] MEDS: ACETAMINOPHEN 500 MG TAB PO PRN (13:06)
== END 2021-07-28 13:41 | disposition home or self-care (01) | DRG 454 ==
LOC: ASU 10:25 → 3E 14:50